=== PATIENT | male | born 1995 ===

== ENCOUNTER 2025-03-26 12:22 | Observation (INO) | payer SELFPAY ==
[2025-03-26] VITALS (13 sets, daily range): BP systolic 100–159; BP diastolic 67–94
[~2025-03-26] VITALS: Ht 180.3 cm; Wt 123.4 kg
[~2025-03-26 12:22] MED LIST: ALBU90OI INH; Prednisone20 MG PO
[2025-03-26 13:37] LABS: Source, Urine Clean Catch
[2025-03-26 13:43] LABS: Bilirubin, Urine Neg (Neg); Color, Urine Yellow (P-Yellow); Glucose Qualitative, Urine 2+ (Neg); Ketones, Urine 1+ (Neg); Leukocyte Esterase, Urine 1+ (Neg); Protein, Urine 2+ (Neg); Specific Gravity, Urine 1.025 (1.003-1.022); Urobilinogen, Urine NORM (Normal)
[2025-03-26 13:51] LABS: BASOPHILS ABSOLUTE AUTO 0.12 K/mm3 (0.00-0.23); BASOPHILS PERCENT AUTO 1 % (0-2); EOSINOPHILS ABSOLUTE AUTO 0.25 K/mm3 (0.00-0.68); EOSINOPHILS PERCENT AUTO 1 % (0-6); Hematocrit 50.4 % (37.0-53.0); Hemoglobin 17.2 g/dL (13.5-17.5); IMMATURE GRAN ABSOLUTE AUTO 0.10 K/mm3 (0.00-0.10); IMMATURE GRAN PERCENT AUTO 1 % (0-1); LYMPHOCYTES ABSOLUTE AUTO 3.58 K/mm3 (0.84-5.20); LYMPHOCYTES PERCENT AUTO 17 % (21-46); MONOCYTES ABSOLUTE AUTO 1.70 K/mm3 (0.16-1.47); MONOCYTES PERCENT AUTO 8 % (4-13); Mean Corpuscular HGB Conc 34.1 g/dL (31.5-36.5); Mean Corpuscular Volume 84 fL (80-100); NEUTROPHILS ABSOLUTE AUTO 15.46 K/mm3 (1.96-9.15); NEUTROPHILS PERCENT AUTO 73 % (41-73); NRBC ABSOLUTE 0.00 K/mm3 (0.00-0.02); NRBC Auto 0.0 /100 WBC (0.0-0.2); Platelet Count 297 K/mm3 (150-400); RDW Coefficient Variation 12.7 % (11.7-14.2); RDW Standard Deviation 38.6 fL (35.1-46.3)
[2025-03-26 14:04] LABS: Red Blood Cells, Urine 0-2 /hpf (0-2)
[2025-03-26] MEDS ORDERED: Piperacillin/Tazobactam Sod 3.375 GM in NS 100 ML IV ONE (14:05)
[2025-03-26] MEDS ORDERED: Ondansetron HCl 2 MG / ML 2ML Vial IV ONE (14:05)
[2025-03-26] MEDS ORDERED: NS 1,000 ML IV SCH (14:05)
[2025-03-26] MEDS ORDERED: HYDROmorphone HCl/Pf 1MG SYR IV ONE (14:05)
[2025-03-26 14:23] LABS: Alanine Aminotransfer (ALT/SGP 145.0 U/L (12-78); Albumin, Blood 4.4 g/dL (3.4-5.0); Albumin/Globulin Ratio 1.1 (0.8-1.8); Anion Gap 12.0 mmol/L (3-11); Aspartate Aminotrans (AST/SGOT 75.0 U/L (12-37); Bilirubin, Total 0.9 mg/dL (0.1-1.0); Blood Urea Nitrogen 12.0 mg/dL (8-24); CO2, Blood 25.0 mmol/L (21-32); Calcium, Blood 9.8 mg/dL (8.5-10.1); Chloride, Blood 102.0 mmol/L (98-108); Creatinine, Blood 0.88 mg/dL (0.60-1.20); Globulin, Blood 4.1 g/dL (2.2-4.0); Glucose, Blood 200.0 mg/dL (70-99); Potassium, Blood 4.5 mmol/L (3.5-5.5); Sodium, Blood 134.0 mmol/L (136-145); Total Protein, Blood 8.5 g/dL (6.4-8.2)
[2025-03-26] MEDS ORDERED: Ondansetron HCl 2 MG / ML 2ML Vial IV PRN ×2 (14:55→19:10)
[2025-03-26] MEDS ORDERED: FLU VACC TS2025-26(6MOS UP)/PF 45 MCG/0.5 ML SYRINGE IM SCH (14:55)
[2025-03-26] MEDS ORDERED: FentaNYL Citrate 50 MCG/ML 2 ML Injection IV PRN ×3 (14:55→19:05)
--- NOTE | 2025-03-26 15:14 | NUR ---
PT HAS 20G IV TO LEFT AC THAT FLUSHES WELL AND FLOWS TO GRAVITY.
[2025-03-26] MEDS ORDERED: Melatonin1 MG PO (15:18)
--- NOTE | 2025-03-26 15:40 | NUR ---
Pt brought from ER to Day Surgery, accompanied by his for procedure w/Dr. Freire. History, Chart, Medications and Allergies reviewed before start of procedure. Patient reports eating 2 bites of a taco and sips of water at [address] Freire and anesthesia aware and continue to proceed. Now awaiting OR. Pre-Op teaching done. Pt verbalizes understanding. Patient States Post-Procedure ride home has been arranged. When shaving, pt had noticeable stretch arceo and red spots noted, clippers used per protocol. Skin appeared fine while shaving, minutes later skin has reddened/rash appearance from razor. Pt belongings and ring given to his for safekeeping.
[2025-03-26] MEDS ORDERED: Bupivacaine 0.5% HCl 5 MG/ML 30MLVIAL ONE (16:41)
--- NOTE | 2025-03-26 16:45 | NUR ---
FROM DAY SURGERY TO SURGICAL UNIT TO AWAIT FOR SURGERY LATER TODAY PENDING OR AVAILABILITY. ABLE TO TRANSFER TO HOSPITAL BED FROM INDEPENDENTLY. RATES PAIN 3/10; TOLERABLE. ABD SOFT. DENIES N/V; REMAINS NPO. AT SIDE.
[2025-03-26] MEDS ORDERED: Bupivacaine 0.5% W/EPI 1:200000 SDV 30 ML Vial ONE (18:41)
--- NOTE | 2025-03-26 18:44 | NUR ---
TO OR VIA [facility]
[2025-03-26] MEDS ORDERED: Midazolam HCl 1MG / ML 2ML Vial ONE (18:49)
[2025-03-26] MEDS ORDERED: FentaNYL Citrate 50 MCG/ML 2 ML Injection ONE (18:49)
[2025-03-26] MEDS ORDERED: Ondansetron HCl 2 MG / ML 2ML Vial ONE (18:54)
[2025-03-26] MEDS ORDERED: Metoclopramide HCl 5MG / ML 2ML Vial ONE (18:54)
[2025-03-26] MEDS ORDERED: Dexamethasone Sod Phos 10 MG/ML 1ML VIAL ONE (18:54)
[2025-03-26] MEDS ORDERED: Ketorolac Tromethamine 30mg Vial ONE (18:55)
[2025-03-26] MEDS ORDERED: HYDROmorphone HCl/Pf 1MG SYR IV PRN ×2 (19:05)
[2025-03-26] MEDS ORDERED: Albuterol 2.5 MG/3 ML VIAL INH PRN (19:10)
[2025-03-26] MEDS ORDERED: Rocuronium Bromide 10 MG/ML 5ML Injection IV ONE (19:16)
[2025-03-26] MEDS ORDERED: Sugammadex Sodium 200 MG/2ML SDV (100 MG/ML) ONE (19:31)
[2025-03-26] MEDS ORDERED: HYDROcodone 5-APAP 325 TAB PO PRN (19:55)
[2025-03-26] MEDS ORDERED: Piperacillin/Tazobactam Sod 3.375 GM in NS 100 ML IV SCH (20:00)
[2025-03-26] MEDS ORDERED: NS 250 ML IV PRN (21:00)
--- NOTE | 2025-03-26 22:08 | NUR ---
ASSUMED CARE REPORT TAKEN FROM IDALIA NELSON TO ASSUME CARE OF PT. PT RESTING IN BED DENIES NEEDS, REPORTS MINIMAL PAIN. DECLINES PAIN MEDICATION. PT AT BEDSIDE. CALL LIGHT WITHIN REACH.
[2025-03-27 00:14] VITALS: BP 144/77
--- NOTE | 2025-03-27 04:50 | NUR ---
SHIFT SUMMARY PT POD 0 LAP APPY. PT REPORTS MINIMAL PAIN, DECLINES PAIN MEDICAITION. PT HAS BEEN UP AMBULATING AND VOIDING. POST OP VITALS ARE STABLE. PLAN IS FOR DISCHARGE TODAY, BED IN LOWEST POSITION, CALL LIGHT WITHIN REACH.
[2025-03-27 05:13] VITALS: BP 141/82
[2025-03-27 06:59] VITALS: BP 135/94
== END 2025-03-27 10:10 | disposition home or self-care (01) ==
LOC: ER 12:22 → SURS 12:23 → ER 12:30 → SURS 16:47
PROVIDERS: Physician Assistant; ADMIT Surgery
PROC: 0DTJ4ZZ Resection of Appendix, Percutaneous Endoscopic Approach (ICD-10-PCS; principal; 2025-03-26 19:00)
DX: K35.33 Acute appendicitis with perforation, localized peritonitis, and gangrene, with abscess (principal)
CPT/HCPCS: 74177; 80053; 81001; 83690; 85025; 87086; 88304; 96365; 96375; 99285-25; A9270; J1100; J1171; J1885; J2250; J2405; J2543; J2704; J2765; J3010; J7030; J7050; J7120; Q9967